=== PATIENT | female | born 1995 | race Caucasian/White ===

== ENCOUNTER 2016-05-21 23:05 | Emergency (ER) | payer OTHER | END 2016-05-22 01:09 | disposition home or self-care (01) | LOC: FER 23:05 | DX: L50.0 Allergic urticaria (principal) | CPT/HCPCS: J2930 ==

== ENCOUNTER 2020-10-31 18:35 | Emergency (ER) | payer OTHER ==
[2020-10-31 20:02] LABS: BASOPHIL 0.3 % (0-2); BILIRUBIN NEGATIVE (NEGATIVE); BLOOD NEGATIVE Ery/uL (NEGATIVE); CLARITY CLEAR (CLEAR); COLOR YELLOW (YELLOW); EOSINOPHIL 0.6 % (0-5); GLUCOSE (U) NORMAL (NORMAL); HCT 39.7 % (37.0-47.0); HGB 12.4 g/dl (12.5-16.0); LEUKOCYTES NEGATIVE Leu/uL (NEGATIVE); LYMPHOCYTE 11.9 % (15-48); MCH 27.3 pg (25.0-31.0); MCHC 31.2 g/dL (32.0-36.0); MCV 87.3 fL (78.0-100.0); MONOCYTE 5.2 % (0-12); MPV 11.4 fL (6.0-9.5); NEUTROPHIL 81.7 % (41-80); NITRITE NEGATIVE (NEGATIVE); NRBC 0; PLT 290 K/uL (150-400); PROTEIN NEGATIVE (NEGATIVE); RBC 4.55 M/uL (4.20-5.40); RDW 13.8 % (11.5-14.0); UROBILINOGEN 0.2 mg/dL (0.2-1.0)
[2020-10-31 20:17] LABS: ALBUMIN 3.4 g/dL (3.4-5.0); BILIRUBIN - TOTAL 0.7 mg/dL (0.2-1.0); BUN/CREAT RATIO (CALC) 13.3 RATIO; CREATININE 0.98 mg/dL (0.51-0.95); GLOBULIN (CALCULATION) 3.9 g/dL; POTASSIUM 3.6 mmol/L (3.5-5.1); TOTAL PROTEIN 7.3 g/dL (6.4-8.2)
[2020-10-31 20:21] LABS: LACTIC ACID 1.7 mmol/L (0.4-1.9)
[2020-10-31] MEDS ORDERED: PHENERGAN25 M1 PO (22:08)
[2020-10-31] MEDS ORDERED: NORCO 5-325 TA1 EACH PO (22:08)
[2020-11-29] MEDS ORDERED: NORCO 5/3251 EACH PO (07:03)
[2020-11-29] MEDS ORDERED: MOTRIN600 MG PO (07:04)
[2020-11-29] MEDS ORDERED: COLACE100 MG PO (09:26)
[2020-11-29] MEDS ORDERED: ACETAMINOPHEN500 M1 PO (09:26)
[2020-11-29] MEDS ORDERED: OXY-IR 5MG5 MG PO (09:26)
== END 2020-10-31 22:45 | disposition home or self-care (01) ==
LOC: FER 18:35
PROVIDERS: Emergency Medicine Emergency Medical Services
DX: R10.11 Right upper quadrant pain (principal); R10.13 Epigastric pain; R11.2 Nausea with vomiting, unspecified
CPT/HCPCS: 36415; 80053; 81003; 83605; 83690; 85025; J1170; J1885; J2405; J7120; Q9967

== ENCOUNTER → 2020-11-29 | Day surgery (SDC) | payer OTHER ==
[~2020-11-29] VITALS: Ht 160 cm; Wt 108.9 kg
[~2020-11-29] MED LIST: ACETAMINOPHEN500 M1 PO; COLACE100 MG PO; MOTRIN600 MG PO; NORCO 5-325 TA1 EACH PO; NORCO 5/3251 EACH PO; OXY-IR 5MG5 MG PO; PHENERGAN25 M1 PO
[2020-11-29 07:05] LABS: HCG (URINE) SCREEN NEGATIVE (NEGATIVE)
[2020-11-29 08:08] LABS: ALBUMIN 3.1 g/dL (3.4-5.0); BILIRUBIN - TOTAL 0.3 mg/dL (0.2-1.0); BUN/CREAT RATIO (CALC) 13.9 RATIO; CREATININE 0.72 mg/dL (0.51-0.95); GLOBULIN (CALCULATION) 3.6 g/dL; POTASSIUM 4.2 mmol/L (3.5-5.1); TOTAL PROTEIN 6.7 g/dL (6.4-8.2)
== END | disposition home or self-care (01) ==
LOC: FAS 06:15
PROVIDERS: Student in an Organized Health Care Education/Training Program
DX: K80.10 Calculus of gallbladder with chronic cholecystitis without obstruction (principal); R74.01 Elevation of levels of liver transaminase levels; F41.9 Anxiety disorder, unspecified; Z87.440 Personal history of urinary (tract) infections; Z79.899 Other long term (current) drug therapy
CPT/HCPCS: 36415; 80053; 82150; 83690; 84703; 93005; J1100; J1170; J1644; J2250; J2405; J2704; J2710; J3010; J7120